=== PATIENT | female | born 1975 | race Caucasian/White ===

== ENCOUNTER 2016-06-05 07:40 | Inpatient (IN) | payer OTHER ==
[~2016-06-05] VITALS: Ht 174 cm; Wt 70.8 kg
[2016-06-05] VITALS (8 sets, daily range): BP systolic 116–146; BP diastolic 74–93; PULSE 81–117; RESP 12–20; O2SAT 88–100
--- NOTE | 2016-06-05 07:57 | ED.REPORT ---
HPI-Chest Pain 40 and Over Date of Service Jun 05, 2016 ED Provider: Yehuda Conley Patient is a 41 year old female who presets to the ED complaining on L sided chest pain. Associated symptoms include fever, vomiting (x1 yesterday), L shoulder pain, pain with deep breathing, and cough (onset 3 days ago). She denies abdominal pain, SOB, lightheadedness, or any other symptoms. She had neck surgery 12 days ago and was on a ventilator for 4 hours during the procedure. She was diagnosed with a UTI 2-3 days after her surgery and is due to take her last dose of antibiotics today. Nursing Notes Stated Complaint: CHEST PAIN Chief Complaint: Chest Pain-Non Cardiac Nature Nursing Notes Reviewed: Yes Allergies: Coded Allergies: Cephalexin Monohydrate (Verified Allergy, Intermediate, FACIAL SWELLING, ) vancomycin (Verified Allergy, Unknown, 11/10/14) General Time Seen by MD: 07:56 Chief Complaint Chest pain Hx Obtained From: Patient Arrived By: Walk-in Sudden in Onset?: Yes Onset Occurred: 3 days ago Symptom Duration: Since onset Recent Healthcare: Recent hospitalization, Previous surgery Past Medical History Past Medical History MVP Anxiety Chronic pain Tachycardia Chronic migraines Reports: Asthma Past Surgical History c5-6,6-7 surg. Jaw repair Reports: Tubal ligation Smoking History Former Smoker Social History Alcohol Use: Denies alcohol use Drug Use: Denies drug use Ambulatory Status Independent Review of Systems Constitutional: Reports: Fever Respiratory: Reports: Pleuritic pain, Prod cough, clear, Denies: Shortness of breath Cardiovascular: Reports: Chest pain GI: Reports: Vomiting, Denies: Abdominal pain Musculoskeletal: Reports: Joint pain (L shoulder ) Neurologic: Denies: Lightheaded Complete sys rev & neg: except as marked. Physical Exam Initial Vital Signs Vital Signs (First) Date Time Temp Pulse Resp B/P Pulse Ox O2 Delivery O2 Flow Rate FiO2 06/05/16 07:43 36.9 117 18 144/81 93 Room Air Head / Eyes: Atraumatic, Normocephalic Skin: Warm, Dry Neurologic: Alert, Oriented, Nonfocal Psychiatric: Mood/affect normal, Behavior normal, Normal thought content General/Constitutional: Awake, Alert, Well appearing, Well developed Respiratory / Chest: No respiratory distress Dull to percussion L base Decreased breath sounds L base Cardiovascular: Regular rhythm, Heart sounds NL Abdomen: Atraumatic, Soft, Non-tender Trauma - Neck Specific: Positive: Immobilized - C Collar Dressing on anterior L neck Interpretation & Diagnostics Lab Results Interpretation Result Diagram: 06/05/16 0947 06/05/16 0947 Test 06/05/16 09:47 White Blood Count 11.3th/mm3 (3.8-10.1) Red Blood Count 3.96mil/mm3 (3.90-5.20) Hemoglobin 10.6g/dL (12.0-15.6) Hematocrit 32.5% (35.0-46.0) Mean Corpuscular Volume 82.1fL (81-100) Mean Corpuscular Hemoglobin 26.8pg (27.0-35.0) Mean Corpuscular Hemoglobin Concent 32.6% (32.0-37.0) Red Cell Distribution Width 13.5% (12.3-15.4) Platelet Count 245bil/L (150-400) Neutrophils (%) (Auto) 79% (40-74) Lymphocytes (%) (Auto) 6% (14-46) Monocytes (%) (Auto) 4% (4-12) Eosinophils (%) (Auto) 0% (0-5) Basophils (%) (Auto) 0% (0-3) Band Neutrophils % 11% (1-5) Sodium Level 136mEq/L (134-144) Potassium Level 3.6mEq/L (3.5-5.2) Chloride Level 95mEq/L (97-108) Carbon Dioxide Level 28mmol/L (18-29) Blood Urea Nitrogen 15mg/dL (6-24) Creatinine 0.71mg/dL (0.57-1.00) Estimat Glomerular Filtration Rate 131mL/min (>59) Glucose Level 103mg/dL (60-99) Lactic Acid Level 2.9mmol/L (0.4-2.0) Calcium Level 8.8mg/dL (8.5-10.1) Total Bilirubin 0.5mg/dL (0.0-1.2) Aspartate Amino Transf (AST/SGOT) 62U/L (0-50) Alanine Aminotransferase (ALT/SGPT) 92U/L (0-32) Alkaline Phosphatase 101U/L (25-150) Total Protein 6.7g/dL (6.4-8.4) Albumin 3.0g/dL (3.4-5.0) X-Ray Chest Interpretation Chest Xray Interpretation: IMPRESSION: Findings consistent with bibasilar bronchopneumonia, with possible left parapneumonic effusion. Dictated by: Daniel Johnson M.D. on 06/05/2016 at 8:43 Approved by: Daniel Johnson M.D. on 06/05/2016 at 8:43 View: AP & lat Interpretation / Wet Read by: Interpret - Radiologist Re-Eval/Medical Decision Time of Eval: 08:50 Re-Evaluation/Progress Note: Discussed imaging results and plan for admission. Patient understands and agrees with plan. All questions addressed at this time. Consultation : Referral / Consult Name: Adalberto Hunter MD Consulted With: Hospitalist Call Returned at: 10:50 Towboat Captain: Will see patient, Agrees with eval, Agrees with plan, Accepts admit Note: Discussed patient's case. Accepts admit. Counseled Regarding: Diagnosis, Lab results, Need for admission Discharge & Departure Primary Impression: Healthcare-associated pneumonia Disposition: ADMITTED TO HOSPITAL Referrals: BONY BUTTS (PCP) Scribe Attestation Portions of this note were transcribed by Leticia Liu. IDr. Conley personally performed the history, physical exam and medical decision-making; I reviewed and confirmed the accuracy of the information in the transcribed note. Signed by: Leticia Liu 06/05/2016, 1055 copies to: BONY BUTTS Kirk H MD Jun 05, 2016 07:57 LETICIA LIU Jun 05, 2016 09:07
--- NOTE | 2016-06-05 08:45 | DRSVH ---
PROCEDURE: X-RAY CHEST, TWO VIEWS ([id number]) INDICATIONS: 41 year-old female with cough for 3 days. TECHNIQUE: 2 views of the chest were acquired. COMPARISON: [facility], , CHEST 2VW, 05/02/2014, 20:53. [facility], , C HEST 1VW (PORTABLE), 02/09/2014, 22:34. [facility], , CHEST 1VW (PORTABLE), 12/26/2012, 20:13. FINDINGS: Surgical changes and devices: None. Lungs and pleura: Bibasilar airspace opacities are present with air bronchograms, more extensive on t he left. There is possible left basal pleural effusion. No pneumothorax. Mediastinum: Mediastinal contours are normal. Heart size is normal. Bones and chest wall: No suspicious bony abnormalities. Soft tissues appear unremarkable. IMPRESSION: Findings consistent with bibasilar bronchopneumonia, with possible left parapneumonic eff usion. Dictated by: Daniel Johnson M.D. on 06/05/2016 at 8:43 Approved by: Daniel Johnson M.D. on 06/05/2016 at 8:43
[2016-06-05] MEDS ORDERED: levoFLOXacin Inj 750 MG in IV Premix 1 EACH IV ONE (08:55)
[2016-06-05] MEDS ORDERED: 0.9% Sodium Chloride 1,000 ML IV ONE (08:55)
[2016-06-05] MEDS ORDERED: Piperacillin-Tazo 3.375 Gm Inj 3.375 GM in Dextrose 5% Minibag Plus 50 ML IV ONE (08:55)
[2016-06-05 10:36] LABS: Mean Corpuscular Hemoglobin 26.8 pg (27.0-35.0); Mean Corpuscular Volume 82.1 fL (81-100); Platelet Count 245 bil/L (150-400)
[2016-06-05 10:37] LABS: BASOPHILS % (AUTO) 0 % (0-3); EOSINOPHILS % (AUTO) 0 % (0-5); MONOCYTES % (AUTO) 4 % (4-12); NEUTROPHILS % (AUTO) 79 % (40-74)
[2016-06-05] MEDS ORDERED: Alum-Mag Hydrox-Simeth 30 mL Suspension PO PRN ×2 (11:45→12:05)
[2016-06-05] MEDS ORDERED: Ondansetron 2 mg/mL 2 mL Inj IVPUSH PRN (11:45)
[2016-06-05] MEDS ORDERED: Albuterol 2.5 mg/3 mL Inhalation Solution NEB PRN (12:05)
[2016-06-05] MEDS ORDERED: Polyethylene Glycol (PEG) 17 Gm Powder PO PRN (12:05)
[2016-06-05] MEDS ORDERED: OXYC30TA48 PO (14:23)
[2016-06-05] MEDS ORDERED: CITA20TA11 PO (14:23)
[2016-06-05] MEDS ORDERED: CLON1TAB PO (14:23)
[2016-06-05] MEDS: Albuterol 2.5 mg/3 mL Inhalation Solution NEB SCH ×2 (14:51→19:43)
[2016-06-05] MEDS: D5 0.9% NaCl + KCl 20 mEq/L 1,000 ML IV SCH (15:16)
--- NOTE | 2016-06-05 15:22 | NUR ---
Admit Pt admitted at 1210 via stretcher from ER. auto body repair technician received report. Pt stable in bed. Placed on 2L O2 per NC after VS at 1235. Sats stable in high 90s after o2 placed. Family at bedside.
[2016-06-05] MEDS ORDERED: MetoCLOpramide 5 mg/mL 2 mL Inj IVPUSH ONE ×2 (15:25→23:45)
[2016-06-05] MEDS ORDERED: HYDROmorphone 1 mg/mL Inj IVPUSH ONE ×2 (15:25→23:45)
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
[2016-06-05] MEDS: Sodium Chloride LOK Flush 10 mL Syringe IVFLUSH SCH (16:30)
--- NOTE | 2016-06-05 16:33 | NUR ---
Vitals MD feldman paged and notified of elevated temp. Asked about IV fluids. IV fluids ordered. aware of vitals.
--- NOTE | 2016-06-05 16:34 | NUR ---
Migraine Pt refusing migraine cocktail at this time, would like to wait and see if fluids are effective.
[2016-06-05] MEDS: Lactobacillus Rhamnosus 10 Bil Unit Capsule PO SCH ×2 (17:56→21:12)
[2016-06-05 20:04] LABS: COLOR,URINE YELLOW (YELLOW)
[2016-06-05 20:05] LABS: APPEARANCE,URINE SLIGHTLY CLOUDY (CLEAR,HAZY); OCCULT BLOOD,URINE TRACE (NEGATIVE); PH,URINE 7.5 (5.0-8.0); UROBILINOGEN,URINE NORMAL (NORMAL)
[2016-06-05] MEDS ORDERED: HYDROmorphone 0.5 mg/0.5 mL iSecure Syringe ONE ×2 (23:38→23:40)
[2016-06-06] VITALS (7 sets, daily range): BP systolic 125–148; BP diastolic 77–91; PULSE 82–117; RESP 12–18; O2SAT 96–98
[2016-06-06] MEDS: Sodium Chloride LOK Flush 10 mL Syringe IVFLUSH SCH ×4 (00:30→22:00)
[2016-06-06] MEDS ORDERED: Pantoprazole 40 mg ER24 Tablet PO SCH (07:30)
[2016-06-06] MEDS: levoFLOXacin 750 mg Tablet PO SCH (08:14)
[2016-06-06] MEDS: Lactobacillus Rhamnosus 10 Bil Unit Capsule PO SCH ×4 (08:14→21:02)
[2016-06-06] MEDS: Albuterol 2.5 mg/3 mL Inhalation Solution NEB SCH ×3 (08:20→20:49)
--- NOTE | 2016-06-06 08:51 | NUR ---
Labs 0830 notified that no am labs ordered, lactic acid high yesterday and no repeat ordered. MD requests repeat CBC, CMP and lactic acid.
--- NOTE | 2016-06-06 09:27 | PCM.PNMED ---
Subjective Date of Service Jun 06, 2016 Subjective - Pt seen and examined bed side. c/o mild right sides chest pain. States that she is feeling better than yesterday. Exam Vital Signs Vital Sign - Last Date Time Temp Pulse Resp B/P Pulse Ox O2 Delivery O2 Flow Rate FiO2 06/06/16 08:15 36.9 117 16 133/83 96 Room Air 06/05/16 19:45 2.00 Intake and Output 06/05/16 06/05/16 06/06/16 Cumulative From/Thru 15:00 23:00 07:00 06/05/16 07:43 - 06/06/16 05:29 Intake Total 1000 ml 294 ml 1124 ml 2418 ml Balance 1000 ml 294 ml 1124 ml 2418 ml Intake IV Total 1000 ml 294 ml 1124 ml 2418 ml Exam Gen.: No weight loss weight gain, ++fevers chills malaise as described above Eyes: no visual disturbances or blurring vision HEENT: No nose/throat drainage, no pain in ears or throat, no hearing loss Lymph: No lymph nodes noted Cardiac: No chest pain, orthopnea, PND, palpitations , pedal edema or dyspnea on exertion Pulmonary: no cough, wheezing or bringing up of sputum, sided back and flank pain worse with breathing GI: No anorexia vomiting blood or black in the stool,+ nausea which she associates with her migraine : no dysuria hematuria urinary frequency or decrease in urine output Musculoskeletal: Joint swelling no joint pain no new muscle aches or back pain Neuro: No syncope, seizures no loss of consciousness no new focal weakness, numbness or tingling, patient has developed her headache/migraine and being here Psychiatric: New new anxiety insomnia or depression Endocrine: No new heat or cold intolerances polyuria or polydipsia Hematology: No lymphadenopathy or easy bleeding or bruising noted IVs and Medications Medications Reviewed: Medications were reviewed in detail Lab and Diagnostics Result Diagram: 06/05/1694606/05/16946 X-Rays, CTs and MRIs Bibasilar pneumonia possible left-sided parapneumonic effusion I personally reviewed these and agree with radiologist read 06/05 Assessment & Plan 41-year-old female with possible healthcare acquired pneumonia started on Levaquin in the emergency room and will continue it. She is also suffering from migraines, her Imitrex was insufficient alone we are going to go ahead and treat her with Reglan, ketorolac and a dose of Dilaudid hopefully that settles it. Finally pleurisy will start her on NSAIDs. Pneumonia - on Levoqin from 06/04 - switched to oral from today - Albuterol nebulizers Pleurisy - possible left-sided parapneumonic effusion - clinically improving migraine -on Imitrex - reglan prn Chronic continuous opiate dependence- continue patient's usual outpatient narcotic regimen Prophylaxis- DVT SCDs and enoxaparin. GI patient is already on famotidine I will not advance her to a PPI at this time. Disposition from home she is a full code VTE Mechanical Devices: Intermittant Pneumatic CD Resuscitation Status: CPR: Attempt Resuscitation Josh Handy MD Jun 06, 2016 09:27
[2016-06-06] MEDS: D5 0.9% NaCl + KCl 20 mEq/L 1,000 ML IV SCH ×3 (10:04→19:14)
[2016-06-06] MEDS: Butalbital-Acet-Caffeine Tablet PO PRN (10:59)
[2016-06-06 11:10] LABS: Mean Corpuscular Hemoglobin 26.7 pg (27.0-35.0); Mean Corpuscular Volume 83.1 fL (81-100)
--- NOTE | 2016-06-06 11:26 | NUR ---
Rounds 1030 notified of continued intermittent mild tachycardia 100-120. No new orders. MD notified of patient complaints of continued SALES/migraine. MD to order fioricet. notified of pt report of urinary retention post surgery (surgery prior to current admit). Pt states she does not void frequently and has not been self cathing at home. Per pt, outpt MD aware of issues. Voided 120 ml of dark urine this am. PVR bladder scan 527ml. Pt able to void again after PVR bladder scan 300ml. notified. To monitor. No new orders. UA culture pending. Per MD, no interventions with neck brace/current dressing in place prior to admit as pt needs to follow up with surgery as outpt.
--- NOTE | 2016-06-06 11:46 | NUR ---
Social Work: Screen D: Per EMR review, pt is a 41 year old female admitted for hospital acquired pneumonia. Pt is JUDITH DAMIAN. PCP is [facility] in [place]. NOK Is pt's mother Heidy Apple. Reamdit score is moderate, 3/8. Pt lives in [place] with family. She is I at baseline and remains I during admission. No sw barriers or needs identified by SCHEDULER CONVEYOR at this time. A: Pt who is I at baseline. P: Anticipate pt to discharge home via POV once medically stable; SCHEDULER CONVEYOR to continue to follow if needs arise. DANIELA Murphy
--- NOTE | 2016-06-06 14:47 | NUR ---
Perez Paged at 1315 that BC positive for pt. No response. Zechariah paged at 1400. Pt stable.
[2016-06-06] MEDS: HYDROcodone-APAP 5-325 mg Tablet PO PRN (22:01)
[2016-06-07] VITALS (9 sets, daily range): BP systolic 132–152; BP diastolic 76–95; PULSE 72–100; RESP 14–16; O2SAT 94–97
[2016-06-07] MEDS: D5 0.9% NaCl + KCl 20 mEq/L 1,000 ML IV SCH ×3 (03:36→22:36)
[2016-06-07 05:32] LABS: BASOPHILS % (AUTO) 0.3 % (0-3); EOSINOPHILS % (AUTO) 3.7 % (0-5); MONOCYTES % (AUTO) 8.8 % (4-12); Mean Corpuscular Volume 83.2 fL (81-100); NEUTROPHILS % (AUTO) 58.9 % (40-74); Platelet Count 202 bil/L (150-400)
[2016-06-07] MEDS ORDERED: Benzocaine-Menthol Lozenge 2/Pkg PO PRN ×2 (05:35→06:05)
--- NOTE | 2016-06-07 06:26 | NUR ---
URINATION Pt has had adequate urine output this shift with 1025ml. Pt reported needing the shower to be on to help and pt has to "bear down like I'm having a baby" to urinate, putting strain her neck. Pt mentioned possible usage of cole catheter because of the pain and discomfort needed to urinate. Will pass onto day shift to discuss in morning rounds.
[2016-06-07] MEDS: HYDROcodone-APAP 5-325 mg Tablet PO PRN (06:35)
[2016-06-07] MEDS: Albuterol 2.5 mg/3 mL Inhalation Solution NEB SCH ×3 (07:18→20:48)
[2016-06-07] MEDS: Sodium Chloride LOK Flush 10 mL Syringe IVFLUSH SCH ×2 (08:30→16:16)
[2016-06-07] MEDS: levoFLOXacin 750 mg Tablet PO SCH (08:50)
[2016-06-07] MEDS: Lactobacillus Rhamnosus 10 Bil Unit Capsule PO SCH ×4 (08:50→20:49)
--- NOTE | 2016-06-07 09:25 | PCM.PNMED ---
Subjective Date of Service Jun 07, 2016 Subjective - No acute events over night - c/o generalized body ache. Exam Vital Signs Vital Sign - Last Date Time Temp Pulse Resp B/P Pulse Ox O2 Delivery O2 Flow Rate FiO2 06/07/16 08:59 36.9 87 16 152/95 96 Room Air 06/05/16 19:45 2.00 Intake and Output 06/06/16 06/06/16 06/07/16 Cumulative From/Thru 15:00 23:00 07:00 06/05/16 07:43 - 06/07/16 06:17 Intake Total 2119 ml 1990 ml 6527 ml Output Total 1175 ml 1025 ml 2200 ml Balance 944 ml 965 ml 4327 ml Intake Oral 948 ml 706 ml 1654 ml IV Total 1171 ml 1284 ml 4873 ml Output Urine Total 1175 ml 1025 ml 2200 ml # Bowel Movements 0 0 Exam Gen.: No weight loss weight gain, ++fevers chills malaise as described above Eyes: no visual disturbances or blurring vision HEENT: Cervical collar in place. No nose/throat drainage, no pain in ears or throat, no hearing loss Lymph: No lymph nodes noted Cardiac: No chest pain, orthopnea, PND, palpitations , pedal edema or dyspnea on exertion Pulmonary: no cough, wheezing or bringing up of sputum, sided back and flank pain worse with breathing GI: No anorexia vomiting blood or black in the stool,+ nausea which she associates with her migraine : no dysuria hematuria urinary frequency or decrease in urine output Musculoskeletal: Joint swelling no joint pain no new muscle aches or back pain Neuro: No syncope, seizures no loss of consciousness no new focal weakness, numbness or tingling, patient has developed her headache/migraine and being here Psychiatric: Anxiety Endocrine: No new heat or cold intolerances polyuria or polydipsia Hematology: No lymphadenopathy or easy bleeding or bruising noted IVs and Medications Medications Reviewed: Medications were reviewed in detail Lab and Diagnostics Result Diagram: 06/07/16 0505 06/07/16 0505 X-Rays, CTs and MRIs Bibasilar pneumonia possible left-sided parapneumonic effusion I personally reviewed these and agree with radiologist read 06/05 Assessment & Plan 41-year-old female with possible healthcare acquired pneumonia started on Levaquin in the emergency room and will continue it. She is also suffering from migraines, her Imitrex was insufficient alone we are going to go ahead and treat her with Reglan, ketorolac and a dose of Dilaudid hopefully that settles it. Finally pleurisy will start her on NSAIDs. Positive blood culture - Likely contaminated - No signs of sepsis - Will repeat it - No fever, chills. Hct trending down. Likely hemodilution - Hct today: 25.3 - Denies bleeding - Will continue to monitor. If Hb is less than 8 will consider PRBC Pneumonia - on Levoqin from 06/04 - Albuterol nebulizers Pleurisy - possible left-sided parapneumonic effusion - clinically improving migraine - Pain is significantly less than yesterday -on Imitrex and Fioricet - reglan prn Cervical fusion surgery - on oxycodone - Cervical collar in place - Dressing removal tomorrow as per her. Chronic continuous opiate dependence- continue patient's usual outpatient narcotic regimen Prophylaxis- DVT SCDs and enoxaparin. GI patient is already on famotidine I will not advance her to a PPI at this time. Disposition Home. She is full code. VTE Mechanical Devices: Intermittant Pneumatic CD Resuscitation Status: CPR: Attempt Resuscitation Josh Handy MD Jun 07, 2016 09:25
[2016-06-07] MEDS: Butalbital-Acet-Caffeine Tablet PO PRN (20:51)
[2016-06-08] MEDS: Sodium Chloride LOK Flush 10 mL Syringe IVFLUSH SCH ×2 (00:21→07:50)
[2016-06-08 01:00] VITALS: BP 142/82; PULSE 94; RESP 16; O2SAT 95
--- NOTE | 2016-06-08 06:12 | NUR ---
Activity Pt ambulated in the kay at the beginning of shift. Pt c/o pain her neck and a headache. Pt was given pain medications as ordered. Pt has slept for quite a bit of the night. C/o a deep pain in her right calf. area was not swollen or warn to the touch. Pt states she does have varicose veins and sometimes they hurt. Will continue to monitor
[2016-06-08 07:12] LABS: Mean Corpuscular Hemoglobin 26.6 pg (27.0-35.0); Mean Corpuscular Volume 81.1 fL (81-100); Platelet Count 259 bil/L (150-400)
[2016-06-08] MEDS: levoFLOXacin 750 mg Tablet PO SCH (07:49)
[2016-06-08] MEDS: Lactobacillus Rhamnosus 10 Bil Unit Capsule PO SCH (07:50)
[2016-06-08 08:15] LABS: BASOPHILS % (AUTO) 0 % (0-3); EOSINOPHILS % (AUTO) 3 % (0-5); MONOCYTES % (AUTO) 10 % (4-12); NEUTROPHILS % (AUTO) 72 % (40-74)
[2016-06-08 08:46] VITALS: BP 120/77; PULSE 111; RESP 16; O2SAT 94
[2016-06-08] MEDS: D5 0.9% NaCl + KCl 20 mEq/L 1,000 ML IV SCH (08:59)
[2016-06-08 09:28] VITALS: PULSE 93; RESP 16; O2SAT 92
[2016-06-08] MEDS: Albuterol 2.5 mg/3 mL Inhalation Solution NEB SCH (09:28)
[2016-06-08] MEDS ORDERED: AMIT75TA2 PO (10:26)
[2016-06-08] MEDS ORDERED: BACL20TA PO (10:26)
[2016-06-08] MEDS ORDERED: ATEN25TA PO (10:26)
--- NOTE | 2016-06-08 10:27 | NUR ---
Meds 1020 Pt now reporting that she takes more home meds, including baclofen, amitryptilline and atenolol. Doses and frequencies verified with both pt and [facility] pharmacy on [address] in [place]. Again verified verbalized oxycodone dose, pt states [facility]. to come up to rounds and discuss. Med rec updated. Addendum: 06/08/16 at 1044 by CLEO PHILLIPS RN 1030 MD notified of reported atenolol. Also notified that pt is c/o mild R calf tenderness. Calf not red or edematous. Addendum: 06/08/16 at 1136 by CLEO PHILLIPS RN MD assessed pt at bedside. No new orders, pt to dc today. aware of HR 120s at bedside. Per , RN to remove neck stitches prior to pt dc today.
[2016-06-08] MEDS ORDERED: LEVO750T9 PO (10:56)
[2016-06-08] MEDS ORDERED: ALBU8.5H2 INHALATION (10:56)
--- NOTE | 2016-06-08 10:58 | PCM.DIMED ---
Discharge Instructions Date of Service Jun 08, 2016 Dates of Hospitalization Jun 05, 2016 at 10:52 Discharge Diagnosis Discharge Diagnosis bacterial pneumonia Diet No restrictions Activity Limited until seen by PCP Call your provider Fever or Chills, Shortness of breath, Chest pain, Excessive diarrhea, Weakness ( unilateral) Patient Instructions Follow-up plan follow up with surgery in 1-2 weeks. Follow-up with PCP in: 1 week Juwan Osuna DO Jun 08, 2016 10:58
--- NOTE | 2016-06-08 12:08 | NUR ---
Wound care 1150 per md request, removed pt's neck brace and left neck dressing, removed 3 sutures w/o complication. No drainage. No redness. Pt to follow up in 1 to 2 weeks with surgery. Neck brace placed back on pt w/o new dressing per pt instruction.
--- NOTE | 2016-06-08 12:24 | NUR ---
Discharge Pt dc'd at 1224 ambulatory with UA and mom. All belongings with pt. Reviewed all discharge instructions and meds and pt verbalized understanding. IV dc'd w/o complication.
--- NOTE | 2016-06-08 12:34 | NUR ---
Social Work-discharge: Data:EMR reviewed. Pt is on day 3 of hospitalization for pneumonia per H&P. Pt is medically stable to discharge home today. Pt has been up independent in her room, per RN notes. Pt's mother to provide transport home today. No discharge needs identified. All updated and agreeable to plan. Assessment:pt who is independent at baseline. Plan:Pt to discharge home today via POV. No discharge needs identified. All updated and agreeable to plan. DANIELA Snyder
--- NOTE | 2016-06-08 20:51 | PCM.DC.MED ---
Discharge Summary Date of Service Jun 08, 2016 Dates of Hospitalization Date of Hospital Admission Jun 05, 2016 at 10:52 Date of Discharge: Jun 08, 2016 Providers: Admitting Physician: Adalberto Hunter MD Primary Care Physician: Janel Akers Attending Physician: Adalberto Hunter MD Diagnosis at Time of Discharge Diagnosis at Time of Discharge bacterial pneumonia Procedures XRay, CTs & MRIs Bibasilar pneumonia possible left-sided parapneumonic effusion I personally reviewed these and agree with radiologist read 06/05 Brief History Patient's a 41-year-old female who had C-spine fusion in [facility] approximately 05/21 who has been at home went to her appointment on and began to feel some left-sided flank pain. It has gotten progressively worse to the point where she was in terrible pain and could not sleep last night. She showed up in the emergency room she was febrile having fevers and chills. Since then she has also developed a migraine. And is generally miserable. She states she has been eating fine prior to this no fevers or chills, no dyspnea no cough or bringing up of sputum. But now when she breathes in deep it hurts badly and when she coughs or does anything particularly left great much greater than right. Hospital Course 41-year-old female with possible healthcare acquired pneumonia started on Levaquin in the emergency room and will continue it. She is also suffering from migraines, her Imitrex was insufficient alone we are going to go ahead and treat her with Reglan, ketorolac and a dose of Dilaudid hopefully that settles it. Finally pleurisy will start her on NSAIDs. She was discharged home in stable condition and will need follow-up with her primary care physician within one week, sooner if her condition worsens in anyway. Positive blood culture - Likely contaminated. Blood culture was positive for staph epidermidis 1 out of 4 bottles - No signs of sepsis -Repeat blood cultures negative at discharge. - No fever, chills. Hct trending down. Likely hemodilution - Hct today: 25.3 - Denies bleeding -Remained stable Pneumonia - on Levoqin from 06/04. 5 days given at discharge - Albuterol nebulizers -Sputum culture positive for strep pneumonia. Sensitivities pending at discharge -She was on room air at the time of discharge Pleurisy - possible left-sided parapneumonic effusion - clinically improving. Little to no pain at discharge migraine - Pain is significantly less than yesterday -on Imitrex and Fioricet - reglan prn Cervical fusion surgery - on oxycodone - Cervical collar in place - Sutures removed prior to discharge Chronic continuous opiate dependence- continue patient's usual outpatient narcotic regimen Exam Vital Signs (Last) Date Time Temp Pulse Resp B/P Pulse Ox O2 Delivery O2 Flow Rate FiO2 06/08/16 09:28 93 16 92 Room Air 06/08/16 08:46 36.1 120/77 06/05/16 19:45 2.00 Test 06/05/16 09:50 06/06/16 10:36 06/08/16 06:50 Urine Color Yellow (YELLOW) Urine Appearance Slightly cloudy Urine pH 7.5 (5.0-8.0) Urine Specific Industry 1.015 (1.003-1.035) Urine Protein 100mg/dL (NEG,TRACE) Urine Glucose (UA) Negativemg/dL (NEGATIVE) Urine Ketones Negativemg/dL (NEGATIVE) Urine Occult Blood Trace (NEGATIVE) Urine Nitrite Negative (NEGATIVE) Urine Bilirubin Negative (NEGATIVE) Urine Urobilinogen Normalmg/dL (NORMAL) Urine Leukocyte Esterase Small (NEGATIVE) Urine RBC 0-2/hpf (0-2) Urine WBC 11-50/hpf (0-5) Urine Epithelial Cells Moderate/hpf (NONE-MOD) Urine Crystals None seen (NONE SEEN) Urine Bacteria Few/hpf (NONE-FEW) Urine Hyaline Casts None/lpf (NONE) Urine Granular Casts None seen (NONE SEEN) Urine Waxy Casts None seen (NONE SEEN) Urine Red Blood Cell Casts None seen (NONE SEEN) Urine White Blood Cell Casts None seen (NONE SEEN) Urine Mucus None seen (None Seen) Urine Trichomonas None seen (NONE SEEN) Urine Yeast None (NONE SEEN) Urinalysis Comment None Urine Culture Reflexed Indicated Lactic Acid Level 1.2mmol/L (0.4-2.0) Total Bilirubin 0.2mg/dL (0.0-1.2) Aspartate Amino Transf (AST/SGOT) 23U/L (0-50) Alanine Aminotransferase (ALT/SGPT) 48U/L (0-32) Alkaline Phosphatase 85U/L (25-150) Total Protein 6.1g/dL (6.4-8.4) Albumin 2.4g/dL (3.4-5.0) White Blood Count 6.4th/mm3 (3.8-10.1) Red Blood Count 3.54mil/mm3 (3.90-5.20) Hemoglobin 9.4g/dL (12.0-15.6) Hematocrit 28.7% (35.0-46.0) Mean Corpuscular Volume 81.1fL (81-100) Mean Corpuscular Hemoglobin 26.6pg (27.0-35.0) Mean Corpuscular Hemoglobin Concent 32.8% (32.0-37.0) Red Cell Distribution Width 13.5% (12.3-15.4) Platelet Count 259bil/L (150-400) Neutrophils (%) (Auto) 72% (40-74) Lymphocytes (%) (Auto) 12% (14-46) Monocytes (%) (Auto) 10% (4-12) Eosinophils (%) (Auto) 3% (0-5) Basophils (%) (Auto) 0% (0-3) Band Neutrophils % 1% (1-5) Metamyelocytes % 2% (0-0) Sodium Level 141mEq/L (134-144) Potassium Level 3.6mEq/L (3.5-5.2) Chloride Level 103mEq/L (97-108) Carbon Dioxide Level 27mmol/L (18-29) Blood Urea Nitrogen 2mg/dL (6-24) Creatinine 0.51mg/dL (0.57-1.00) Estimat Glomerular Filtration Rate 191mL/min (>59) Glucose Level 128mg/dL (60-99) Calcium Level 8.5mg/dL (8.5-10.1) Discharge Medications Discharge Medications Albuterol HFA (Proair HFA) 8.5 Gm Hfa.aer.ad 2 PUFFS INHALATION Q4H Prescribed by: LEILANI OSUNA DO Amitriptyline (Amitriptyline) 75 Mg Tablet 75 MG PO HS (Reported) Atenolol (Atenolol) 25 Mg Tablet 25 MG PO DAILY (Reported) Citalopram (Citalopram) 20 Mg Tablet 40 MG PO DAILY (Reported) Clonazepam (Klonopin) 1 Mg Tablet 1 MG PO TID (Reported) Levofloxacin (Levaquin) 750 Mg Tablet 750 MG PO DAILYAC Prescribed by: LEILANI OSUNA DO Oxycodone (Roxicodone) 30 Mg Tablet 30 MG PO every 4 hours (Reported) As needed Baclofen (Baclofen) 20 Mg Tablet 20 MG PO 3 to 4 times daily PRN PRN For Spasm ( Reported) Followup Plan Follow-up plan follow up with surgery in 1-2 weeks. Discharge Diet: No restrictions Discharge Activity: Limited until seen by PCP Follow-up with PCP in: 1 week Time spent 45 minutes Leilani Osuna DO Jun 08, 2016 20:51
== END 2016-06-08 12:21 | disposition home or self-care (01) | DRG 139 ==
LOC: SED 07:40 → MOC 10:52
PROVIDERS: ADMIT Hospitalist; ATTEND Hospitalist
DX: J15.9 Unspecified bacterial pneumonia (principal); F11.20 Opioid dependence, uncomplicated; G89.29 Other chronic pain; Z87.891 Personal history of nicotine dependence; G43.909 Migraine, unspecified, not intractable, without status migrainosus; R09.1 Pleurisy; D64.9 Anemia, unspecified

== ENCOUNTER 2016-08-31 09:30 | Emergency (ER) | payer OTHER ==
[~2016-08-31] VITALS: Ht 175.3 cm; Wt 65.9 kg
[~2016-08-31 09:30] MED LIST: ALBU8.5H2 INHALATION; AMIT75TA2 PO; ATEN25TA PO; BACL20TA PO; CITA20TA11 PO; CLON1TAB PO; LEVO750T9 PO; OXYC30TA48 PO
[2016-08-31 09:33] VITALS: BP 109/65; PULSE 76; RESP 14; O2SAT 98
--- NOTE | 2016-08-31 09:58 | ED.REPORT ---
HPI-General Illness Date of Service Aug 31, 2016 ED Provider: Elia Arciniega MD Pt is a 41 year old female with a hx of neck surgery May 24, 2016 presenting to the ED complaining of severe neck pain onset a month and a half ago, worsened recently. Associated symptoms include increasing pain and numbness radiating to her right arm, numbness in both legs, fever last week and nausea secondary to pain. Denies incontinence or IV drug use. She has a follow up appointment on September [address] Garza. She reports that the pain is unbearable, and she is unable to live her day to day life. Pt reports that 2 months post operation, she heard a pop and symptoms returned more severe than before the surgery. Pt takes 3 4mg Dilaudid and 3 10mg Oxycodone per day for pain. Before surgery pt was taking 30mg Oxycodone. On the 02 of September pt had a cervical spine CT no contrast at [facility] showing stable and intact ACDF C5-C7. Partial osseus bridging and fusion of C6- C7 level. Persistent lucency along the superior aspect of the intervertebral graft at C5-C6. No perihardware lucency. Nursing Notes Stated Complaint: RIGHT SIDE NUMBNESS/NECK PAIN Chief Complaint: General Complaint Nursing Notes Reviewed: Yes Allergies: Coded Allergies: Cephalexin Monohydrate (Verified Allergy, Intermediate, FACIAL SWELLING, ) vancomycin (Verified Allergy, Unknown, 11/10/14) Scheduled Albuterol HFA (Proair HFA) 8.5 Gm Hfa.aer.ad 2 PUFFS INHALATION Q4H Amitriptyline (Amitriptyline) 75 Mg Tablet 75 MG PO HS Atenolol (Atenolol) 25 Mg Tablet 25 MG PO DAILY Citalopram (Citalopram) 20 Mg Tablet 40 MG PO DAILY Clonazepam (Klonopin) 1 Mg Tablet 1 MG PO TID Levofloxacin (Levaquin) 750 Mg Tablet 750 MG PO DAILYAC Methylprednisolone (MethylprednisoLONE Dose Allan) 4 Mg Tab.ds.pk 4 MG PO UD Follow direction on package. Oxycodone (Roxicodone) 30 Mg Tablet 30 MG PO every 4 hours Scheduled PRN Baclofen (Baclofen) 20 Mg Tablet 20 MG PO 3 to 4 times daily PRN PRN For Spasm General Time Seen by MD: 09:53 Chief Complaint Other (Neck pain) Hx Obtained From: Patient Arrived By: Walk-in Sudden in Onset?: No Onset Occurred: More than a week ago... (2 months) Symptom Duration: Since onset Location: : Hand right: Neck Quality: Painful Severity: Current: Severe Severity: Maximum: Severe Recent Healthcare: No recent doctor visit, No recent hospitalization, Previous surgery Similar Sx Previous: Yes Past Medical History Past Medical History MVP Anxiety Chronic pain Tachycardia Chronic migraines Reports: Asthma Past Surgical History c5-6,6-7 surgery May [address] no contrast on 02 of September at [facility] showing stable and intact ACDF C5-C7. Partial osseus bridging and fusion of C6-C7 level. Persistent lucency along the superior aspect of the intervertebral graft at C5-C6. No perihardware lucency. Jaw repair Reports: Tubal ligation Smoking History Former Smoker Social History Alcohol Use: Denies alcohol use Drug Use: Denies drug use Ambulatory Status Independent Review of Systems Full Review of Systems Constitutional: Reports: Fever Female: Denies: Incontinence Musculoskeletal: Reports: Neck pain Neurologic: Reports: Numbness Complete sys rev & neg: except as marked. Physical Exam Vital Signs Vital Signs Date Time Temp Pulse Resp B/P Pulse Ox O2 Delivery O2 Flow Rate FiO2 08/31/16 10:42 37.0 74 16 112/68 98 Room Air 08/31/16 09:33 37.0 76 14 109/65 98 Room Air Initial VS: Reviewed Head / Eyes: Atraumatic, Normocephalic, PERRL ENT: Mucous membranes moist, Conjunctiva normal, No scleral icterus Respiratory: No respiratory distress Cardiovascular: Intact distal pulses Abdomen / GI: No distention Extremities: Vascular intact, Neuro intact, No swelling Skin: Warm, Dry, No cyanosis Neurologic: Alert, Oriented, Nonfocal Psychiatric: Mood/affect normal, Behavior normal, Normal thought content General/Constitutional: Awake, Alert, No acute distress Wearing [place] J collar Upper Extremities Upper Extremity / MS: Neurologic intact, Vascular intact Model Builder and arm extensor 4/5 on right. Deep tendon reflexes normal and symmetric. Re-Eval/Medical Decision Med Decision/Clinical Course Neck pain and R arm pain/weakness. Pt concerned about psuedoarthrosis associated with fusion. Already on fairly high dose opiods- will not increase this. 14 ED visits between here, [facility] and [facility] in last 12 months. Refused offer of Rx for Gabapentin "makes me too sleepy", though she insists that current pain level is intolerable. Time of Eval: 10:25 Patient Status: Condition improved Re-Evaluation/Progress Note: Discussed consultation with Dr. Colin. Discussed plan for discharge. Pt understands and agrees with plan. Consultation : Referral / Consult Name: Katie Colin MD Consulted With: Primary care physician Call Returned at: 10:15 Library Historian: Agrees with plan Note: Primary care notes pt opiod dependent and with significant anxiety. Pain management has been problematic. Counseled Regarding: Diagnosis, Lab results, Need for follow-up, When/why to return to ED Discharge & Departure Primary Impression: Neck pain Disposition: Home Discharge Condition All VS Reviewed: Yes Condition: Improved Additional Instructions: ED evaluation today included interview, exam, review of outside imaging report and coordination with your numerical control nesting operator. The neck pain you are experiencing is not the result of an acute injury or infection, it is safe to follow up as an outpatient with chronic pain and neurosurgery as planned. Use opiate pain medications only as prescribed. Follow up with primary care soon, call today for an appointment. Start the medrol dose pack tomorrow, we gave a dose of steroids today also, hopefully this will help decrease your pain soon. Referrals: [facility] (PCP) Anthony Garza MD, Shannon MD Scribe Attestation Portions of this note were transcribed by Jackie Griffin. I, Dr. Arciniega personally performed the history, physical exam and medical decision-making; I reviewed and confirmed the accuracy of the information in the transcribed note. Signed by : Srini Aldana, 08/31/2016 at 1042. copies to: Anthony Garza MD; Katie Colin MD, Donald L MD Aug 31, 2016 09:58 JACKIE GRIFFIN Aug 31, 2016 10:19
[2016-08-31] MEDS ORDERED: predniSONE 20 mg Tablet PO ONE (10:30)
[2016-08-31] MEDS ORDERED: METH4TAB11 PO (10:34)
[2016-08-31 10:42] VITALS: BP 112/68; PULSE 74; RESP 16; O2SAT 98
== END 2016-08-31 10:43 | disposition home or self-care (01) ==
LOC: SED 09:30
DX: M54.2 Cervicalgia (principal); R20.0 Anesthesia of skin; R50.9 Fever, unspecified; R11.0 Nausea; J45.909 Unspecified asthma, uncomplicated; Z98.890 Other specified postprocedural states; Z87.891 Personal history of nicotine dependence; Z88.1 Allergy status to other antibiotic agents

== ENCOUNTER 2016-09-14 11:56 | Emergency (ER) | payer OTHER ==
[~2016-09-14] VITALS: Ht 175.3 cm; Wt 65.9 kg
[~2016-09-14 11:56] MED LIST changes: +METH4TAB11 PO
[2016-09-14 12:12] VITALS: BP 132/82; PULSE 66; RESP 14; O2SAT 100
--- NOTE | 2016-09-14 13:54 | ED.REPORT ---
HPI-Headache Date of Service Sep 14, 2016 ED Provider: Hua Matthews DO 41 year old female with a history of migraines and c4-c7 fusion May 2016 presents to the ER accompanied by her mother complaining of headache. Symptoms are similar to her typical migraines, but far more severe. Patient denies positional component, and any new neurologic symptoms. She has treated her symptoms with her daily dose of Imitrex, 20mg oxycodone, and 2mg Dilaudid this morning without relief. Associated symptoms include left neck stiffness, nausea , and chills. Yesterday she had a myelogram at [facility], and is concerned for infection. Nursing Notes Stated Complaint: SPINAL HEADACHE NECK PAIN Chief Complaint: Headache Nursing Notes Reviewed: Yes Allergies: Coded Allergies: Cephalexin Monohydrate (Verified Allergy, Intermediate, FACIAL SWELLING, ) vancomycin (Verified Allergy, Unknown, 11/10/14) Scheduled Albuterol HFA (Proair HFA) 8.5 Gm Hfa.aer.ad 2 PUFFS INHALATION Q4H Amitriptyline (Amitriptyline) 75 Mg Tablet 75 MG PO HS Atenolol (Atenolol) 25 Mg Tablet 25 MG PO DAILY Citalopram (Citalopram) 20 Mg Tablet 40 MG PO DAILY Clonazepam (Klonopin) 1 Mg Tablet 1 MG PO TID Levofloxacin (Levaquin) 750 Mg Tablet 750 MG PO DAILYAC Methylprednisolone (MethylprednisoLONE Dose Allan) 4 Mg Tab.ds.pk 4 MG PO UD Follow direction on package. Oxycodone (Roxicodone) 30 Mg Tablet 30 MG PO every 4 hours Sumatriptan Succinate (Imitrex) 6 Mg/0.5 Ml Cartridge 6 MG SQ ONCE may repeat in one hour, no more than 12 mg in 24hrs Scheduled PRN Baclofen (Baclofen) 20 Mg Tablet 20 MG PO 3 to 4 times daily PRN PRN For Spasm General Time Seen by MD: 13:53 Chief Complaint Migraine headache Hx Obtained From: Patient Arrived By: Walk-in Sudden in Onset?: No Onset Occurred: 5 - 8 hours ago Symptom Duration: Since onset Location: : Generalized Quality: Painful Severity: Current: Moderate Severity: Maximum: Moderate Associated with: Reports: Nausea Related History: Reports: Headache, migraine hx Recent Healthcare: Recent doctor visit Similar Sx Previous: Yes Past Medical History Past Medical History MVP Anxiety Chronic pain Tachycardia Chronic migraines Reports: Asthma Past Surgical History c5-6,6-7 surgery May [address] no contrast on [address] [facility] showing stable and intact ACDF C5-C7. Partial osseus bridging and fusion of C6-C7 level. Persistent lucency along the superior aspect of the intervertebral graft at C5-C6. No perihardware lucency. Jaw repair Reports: Tubal ligation Smoking History Former Smoker Social History Alcohol Use: Denies alcohol use Drug Use: Denies drug use Ambulatory Status Independent Review of Systems Constitutional: Reports: Chills, Denies: Fever Eyes: Reports: Photophobia GI: Reports: Nausea, Denies: Vomiting Musculoskeletal: Reports: Neck pain Neurologic: Reports: Headache, Denies: Focal weakness, Numbness, Slurred speech, Vision change, Weakness Complete sys rev & neg: except as marked. Physical Exam Initial Vital Signs Vital Signs (First) Date Time Temp Pulse Resp B/P Pulse Ox O2 Delivery O2 Flow Rate FiO2 09/14/16 12:12 36.5 66 14 132/82 100 Room Air Initial VS: Reviewed Extremities: Vascular intact, Neuro intact, No swelling, No tenderness Skin: Warm, Dry, No cyanosis Psychiatric: Mood/affect normal, Behavior normal, Normal thought content General/Constitutional: Awake, Alert, Well developed, Well nourished Head / Eyes: Atraumatic, Normocephalic Neck: Full range of motion, No midline vertebral tend Neurologic: Oriented X3, Speech NL, No motor deficits, No sensory deficits, CN II - XII intact, Cerebellar NL Respiratory / Chest: Breath sounds NL, Breath sounds = bilat, No respiratory distress, No rales, No rhonchi, No wheezing Cardiovascular: Heart rate NL, Regular rhythm, Heart sounds NL, Peripheral circulation NL Re-Eval/Medical Decision Med Decision/Clinical Course Post myelogram headache, overall it does not sound positional in nature, it may be a post dural puncture CSF leak, although Symptoms sound similar to her other migraines. She was given her usual dose of oxycodone and offered Compazine and Benadryl which she declined. She would prefer a dose of subcutaneous Imitrex. I did offer to contact anesthesia for a blood patch however she declines this at this time in order to pursue less invasive management. I did recommend that she return to the ER if her headache worsens or is continuing to persist and could consider blood patch at that time. Source of Hx: Old records Re-Evaluation/Progress : Time of Eval: 14:36 Re-Evaluation/Progress Note: Discussed physical examination findings and plan to discharge after medications. Patient is amenable to the plan. Return precautions given. All other questions addressed. Counseled Regarding: Diagnosis, Lab results, Need for follow-up, When/why to return to ED Discharge & Departure Impression: Primary Impression: Migraine Disposition: Home Discharge Condition All VS Reviewed: Yes Condition: Stable Patient Instructions: Migraine Headache (DC) Additional Instructions: Continue your home medications as prescribed. Use imitrex as needed. Follow-up with your primary care physician later this week. Call your spine surgeon today for further evaluation. Today we discussed having a blood patch and other medication however he declined any of this in order to have Imitrex and go home. Return to the ER in the next few days if you feel like her headache is not going away as you may need a blood patch. Return to the ER if you develop any new neurologic symptoms, or any other concerning symptoms. Referrals: BONY BUTTS (PCP) Stefaniibshira Attestation Portions of this note were transcribed by Jareth Flores. I, Dr. Matthews, personally performed the history, physical exam and medical decision-making; I reviewed and confirmed the accuracy of the information in the transcribed note. Signed by: Srini Wong, 09/14/2016 and 14:48 copies to: BONY BUTTS Timothy S DO Sep 14, 2016 13:54 JARETH FLORES Sep 14, 2016 14:04
[2016-09-14] MEDS ORDERED: ProchlorPERazine 5 mg/mL 2 mL Inj IM ONE (14:05)
[2016-09-14] MEDS ORDERED: oxyCODONE-Acetamin 10-325 mg Tablet PO ONE (14:05)
[2016-09-14] MEDS ORDERED: SUMA6KIT SQ (14:46)
[2016-09-14 15:00] VITALS: BP 130/60; PULSE 66; RESP 16; O2SAT 100
== END 2016-09-14 14:47 | disposition home or self-care (01) ==
LOC: SED 11:56
DX: G43.909 Migraine, unspecified, not intractable, without status migrainosus (principal); Z87.891 Personal history of nicotine dependence; Z88.1 Allergy status to other antibiotic agents

== ENCOUNTER 2016-11-08 14:11 | Emergency (ER) | payer OTHER ==
[~2016-11-08] VITALS: Ht 175.3 cm; Wt 65.0 kg
[~2016-11-08 14:11] MED LIST changes: +SUMA6KIT SQ
[2016-11-08 14:13] VITALS: BP 136/76; PULSE 82; RESP 20; O2SAT 100
--- NOTE | 2016-11-08 14:20 | ED.REPORT ---
HPI-Neck Pain Free Text HPI Notes Nov 08, 2016 ED Provider: Yaakov Juan PAC History of Present Illness: 41yo female with long hx. of neck pain issues states she fell backwards down 5 steps at home last night and hit her posterior neck on corner of a stair step. No LOC. She does have numbness and tingling in R arm. Additionally, she reports a hx. of failed cervical spine fusion x 2, most recently in May, at [facility].. She takes 30mg of oxycodone 5 times daily. Nursing Notes Stated Complaint: FELL ON INJURED NECK, NUMBNESS AND TINGLING Chief Complaint: Head, Face, Neck Trauma Nursing Notes Reviewed: Yes Allergies: Coded Allergies: Cephalexin Monohydrate (Verified Allergy, Intermediate, FACIAL SWELLING, ) vancomycin (Verified Allergy, Unknown, 11/10/14) Scheduled Albuterol HFA (Proair HFA) 8.5 Gm Hfa.aer.ad 2 PUFFS INHALATION Q4H Amitriptyline (Amitriptyline) 75 Mg Tablet 75 MG PO HS Atenolol (Atenolol) 25 Mg Tablet 25 MG PO DAILY Citalopram (Citalopram) 20 Mg Tablet 40 MG PO DAILY Clonazepam (Klonopin) 1 Mg Tablet 1 MG PO TID Levofloxacin (Levaquin) 750 Mg Tablet 750 MG PO DAILYAC Lidocaine (Lidoderm) 700 Mg Adh..patch 1 PATCH TP UD Methylprednisolone (MethylprednisoLONE Dose Allan) 4 Mg Tab.ds.pk 4 MG PO UD Follow direction on package. Oxycodone (Roxicodone) 30 Mg Tablet 30 MG PO every 4 hours Prednisone (PredniSONE) 20 Mg Tablet 40 MG PO DAILY Sumatriptan Succinate (Imitrex) 6 Mg/0.5 Ml Cartridge 6 MG SQ ONCE may repeat in one hour, no more than 12 mg in 24hrs Scheduled PRN Baclofen (Baclofen) 20 Mg Tablet 20 MG PO 3 to 4 times daily PRN PRN For Spasm Ondansetron ODT (Zofran ODT) 8 Mg Tablet 8 MG PO TID PRN PRN For Nausea General Time Seen by Provider: 14:20 Chief Complaint Neck injury Arrived By: Walk-in Sudden in Onset?: Yes Onset Occurred: Yesterday Progression Since Onset: Constant Caused by: Fall Context: Occurred at: Home Associated with: Reports: Decreased range of motion, Decreased sensation, Stiff neck Pertinent Negative: Pt denies other symptoms Exacerbated by: Flexion, Extension, Palpation Pertinent Negative: Relieved by nothing Recent Healthcare: Recent doctor visit Similar Sx Previous: Yes Risk-Neck Pain Risk Notes: previous surgery indicates CT to evaluate this new injury. High Risk for Injury Prior spine injury RF Statements: Risk factors reviewed Past Medical History Past Medical History MVP Anxiety Chronic pain Tachycardia Chronic migraines Reports: Asthma Past Surgical History c5-6,6-7 surgery May [address] no contrast on 02 of September at [facility] showing stable and intact ACDF C5-C7. Partial osseus bridging and fusion of C6-C7 level. Persistent lucency along the superior aspect of the intervertebral graft at C5-C6. No perihardware lucency. Jaw repair Reports: Tubal ligation Smoking History Former Smoker Social History Alcohol Use: Denies alcohol use Drug Use: Denies drug use Ambulatory Status Independent Review of Systems Constitutional: Denies: Chills, Fever Respiratory: Denies: Shortness of breath Cardiovascular: Denies: Chest pain GI: Reports: Nausea, Denies: Abdominal pain Musculoskeletal: Reports: Neck pain Neurologic: Reports: Numbness (R arm), Denies: Change LOC, Focal weakness, Weakness Physical Exam Physical Exam Notes: wearing c-collar Initial Vital Signs Vital Signs (First) Date Time Temp Pulse Resp B/P Pulse Ox O2 Delivery O2 Flow Rate FiO2 11/08/16 14:13 36.1 82 20 136/76 100 Room Air Initial VS: Reviewed General/Constitutional: Awake, Alert, No acute distress, Not toxic appearing Neck: Atraumatic, No adenopathy, No swelling, No masses, No crepitus Meningeal Signs / ROM: Positive: Decreased extension, Decreased flexion, Negative: Nuchal rigidity present Neck / Muscle Tenderness: Positive: Midline tenderness mid, Paraspinal L..., Paraspinal R... Soft Tissue Neck: Negative: Skin erythematous..., Swelling present... Neurologic: Oriented X3, Speech NL, No motor deficits, No sensory deficits, CN II - XII intact regional director strength 5/5 bilat Respiratory / Chest: Breath sounds NL, Breath sounds = bilat, No respiratory distress Cardiovascular: Heart rate NL, Regular rhythm, Heart sounds NL Interpretation & Diagnostics CT C-Spine Interpretation PROCEDURE: CT CERVICAL SPINE WITHOUT CONTRAST ([id number]) INDICATIONS: pain, s/p fall / TECHNIQUE: Noncontrast 3 mm thick sections acquired from the skull base to the T4 level. Sagittal and coronal reformats were then constructed. For radiation dose reduction, the following was used: automated exposure control, adjustment of mA and/or kV according to patient size. COMPARISON: None. FINDINGS: Image quality: Diagnostic. Bones: The craniocervical and atlantoaxial joints are well-maintained. The odontoid is intact. The vertebral body heights and prevertebral soft tissues are within normal limits throughout the cervical spine without evidence to suggest acute compression fracture. No other fractures are evident within the cervical spine. The bone mineralization is within normal limits. Postoperative changes are present related to an anterior cervical discectomy and fusion at the levels of C5-C7. Interbody bone spacers are present, secured in place by anteriorly placed orthopedic plate and screws. The orthopedic hardware appears to be grossly intact. However, evaluation of hardware on conventional radiographic imaging is difficult. There is reversal of the normal cervical lordosis. Mild facet degenerative changes are present. There is mild disc height loss at C4-5. Soft tissues: No prevertebral soft tissue swelling. The imaged lung apices are clear. Imaged portions of the mediastinum are unremarkable. Otherwise, the remainder of the imaged soft tissues of the neck are within normal limits. IMPRESSION: 1. No acute fracture of the cervical spine. 2. Postoperative and degenerative changes of the lower cervical spine. Dictated by: Sourav Ricardo M.D. on 11/08/2016 at 13:59 Approved by: Sourav Ricardo M.D. on 11/08/2016 at 14:06 Re-Eval/Medical Decision Med Decision/Clinical Course Pt's CT without findings of new trauma. Reviewed with Dr. Conley who concurs with plan for adjunctive therapy of Prednisone and Lidoderm patch to add to her home Oxycodone. Will also provide Zofran for nausea. Discussed s/s for which to seek further medical care. Pt. acknowledged understanding of treatment plan. Counseled Regarding: Diagnosis, Lab results, Need for follow-up, When/why to return to ED Discharge & Departure Primary Impression: Acute neck pain Additional Impression: Neck contusion Disposition: Home Patient Instructions: Contusion in Adults (ED) Additional Instructions: Rest, local heat, take home pain meds as currently prescribed. Use Prednisone, Zofran and Lidoderm patch as prescribed. Follow up if not improving, return to ER if anything worsens. Referrals: [facility] (PCP) 2-3 days if not improving as expected EDSupervising Provider for APC: Yehuda Conley MD, Christopher R [facility] Nov 08, 2016 14:20
--- NOTE | 2016-11-08 15:07 | DRSVH ---
PROCEDURE: CT CERVICAL SPINE WITHOUT CONTRAST ([id number]) INDICATIONS: pain, s/p fall 6/4 TECHNIQUE: Noncontrast 3 mm thick sections acquired from the skull base to the T4 level. Sagittal and coronal r eformats were then constructed. For radiation dose reduction, the following was used: automated exp osure control, adjustment of mA and/or kV according to patient size. COMPARISON: None. FINDINGS: Image quality: Diagnostic. Bones: The craniocervical and atlantoaxial joints are well-maintained. The odontoid is intact. The vertebral body heights and prevertebral soft tissues are within normal limits throughout the cervical spine without evidence to suggest acute compression fracture. No other fractures are evident within the cervical spine. The bone mineralization is within normal limits. Postoperative changes are present related to an anterior cervical discectomy and fusion at the levels of C5-C7. Interbody bone spacers are present, secured in place by anteriorly placed orthopedic plat e and screws. The orthopedic hardware appears to be grossly intact. However, evaluation of hardware on conventional radiographic imaging is difficult. There is reversal of the normal cervical lordosi s. Mild facet degenerative changes are present. There is mild disc height loss at C4-5. Soft tissues: No prevertebral soft tissue swelling. The imaged lung apices are clear. Imaged porti ons of the mediastinum are unremarkable. Otherwise, the remainder of the imaged soft tissues of the neck are within normal limits. IMPRESSION: 1. No acute fracture of the cervical spine. 2. Postoperative and degenerative changes of the lower cervical spine. Dictated by: Sourav Ricardo M.D. on 11/08/2016 at 13:59 Approved by: Sourav Ricardo M.D. on 11/08/2016 at 14:06
[2016-11-08] MEDS ORDERED: Ondansetron 8 mg ODT Tablet ONE (15:19)
[2016-11-08] MEDS ORDERED: LIDO700A6 TP (15:47)
[2016-11-08] MEDS ORDERED: PRE20 PO (15:47)
[2016-11-08] MEDS ORDERED: ONDA8TAB7 PO (15:47)
[2016-11-08 16:05] VITALS: BP 112/66; PULSE 81; O2SAT 100
== END 2016-11-08 16:09 | disposition home or self-care (01) ==
LOC: SED 14:11
DX: S10.93XA Contusion of unspecified part of neck, initial encounter (principal); W10.9XXA Fall (on) (from) unspecified stairs and steps, initial encounter; Y93.89 Activity, other specified; Y92.019 Unspecified place in single-family (private) house as the place of occurrence of the external cause; Y99.8 Other external cause status; J45.909 Unspecified asthma, uncomplicated; G43.909 Migraine, unspecified, not intractable, without status migrainosus; F41.9 Anxiety disorder, unspecified; Z87.891 Personal history of nicotine dependence; Z88.1 Allergy status to other antibiotic agents

== ENCOUNTER 2016-11-23 19:24 | Emergency (ER) | payer OTHER ==
[~2016-11-23] VITALS: Ht 175.3 cm; Wt 65.9 kg
[~2016-11-23 19:24] MED LIST changes: +LIDO700A6 TP; +ONDA8TAB7 PO; +PRE20 PO
[2016-11-23 19:26] VITALS: BP 135/91; PULSE 4; PULSE 84; RESP 18; O2SAT 100
[2016-11-23 20:34] LABS: BASOPHILS % (AUTO) 0.2 % (0-3); EOSINOPHILS % (AUTO) 5.2 % (0-5); MONOCYTES % (AUTO) 6.1 % (4-12); Mean Corpuscular Hemoglobin 23.5 pg (27.0-35.0); Mean Corpuscular Volume 76.2 fL (81-100); NEUTROPHILS % (AUTO) 52.9 % (40-74); Platelet Count 123 bil/L (150-400)
[2016-11-23 21:03] LABS: TROPONIN T < 0.010 ug/L (0.0-0.011)
== END 2016-11-23 21:48 | disposition left against medical advice (07) ==
LOC: SED 19:24
DX: Z53.21 Procedure and treatment not carried out due to patient leaving prior to being seen by health care provider (principal)

== ENCOUNTER 2017-02-02 14:01 | Emergency (ER) | payer OTHER ==
[~2017-02-02] VITALS: Ht 175.3 cm; Wt 71.0 kg
[2017-02-02 14:03] VITALS: BP 127/84; PULSE 74; RESP 16; O2SAT 100
[2017-02-02 14:40] VITALS: BP 138/71; PULSE 73; RESP 12; O2SAT 100
[2017-02-02 14:47] LABS: BASOPHILS % (AUTO) 0.5 % (0-3); EOSINOPHILS % (AUTO) 4.7 % (0-5); MONOCYTES % (AUTO) 7.7 % (4-12); Mean Corpuscular Hemoglobin 22.7 pg (27.0-35.0); Mean Corpuscular Volume 73.6 fL (81-100); NEUTROPHILS % (AUTO) 53.1 % (40-74); Platelet Count 143 bil/L (150-400)
--- NOTE | 2017-02-02 14:55 | DRSVH ---
PROCEDURE: X-RAY CHEST ONE VIEW, PORTABLE ([id number]) INDICATIONS: cp TECHNIQUE: One view of the chest was acquired. COMPARISON: [facility], CR, CHEST 2VW, 05/02/2014, 20:53. [facility], CR, X R CHEST 2VW, 06/05/2016, 8:10. FINDINGS: Surgical changes and devices: Partially visualized cervical spine fixation hardware.. Lungs and pleura: No pleural effusions or pneumothorax. Lungs are clear. Possible nipple shadow pr ojecting in the right right lung. Mediastinum: Mediastinal contours appear normal. Heart size is normal. Bones and chest wall: No suspicious bony lesions. Overlying soft tissues appear unremarkable. IMPRESSION: No acute disease. Probable nipple shadow projecting in the right lung although cannot exclude pulmonary nodule, however that would be statistically unlikely given patient age. As clinically warranted, repeat radiographs with nipple markers could be performed. Dictated by: Jose Angel Osei M.D. on 02/02/2017 at 14:51 Approved by: Jose Angel Osei M.D. on 02/02/2017 at 14:54
[2017-02-02] MEDS ORDERED: METH-313 PO (15:01)
[2017-02-02] MEDS ORDERED: DOXY25TA46 PO (15:04)
--- NOTE | 2017-02-02 15:08 | ED.REPORT ---
HPI-Chest Pain 40 and Over Date of Service Feb 02, 2017 ED Provider: Nile Perez MD Patient is a 41 year old female with a history of who presents to the ED complaining of an episode of epigastric/right upper quadrant/lower chest pain onset in the middle of the night. Associated symptoms include pain in the epigastric region, an episode of nausea last night, diaphoresis, pain that radiated into her shoulders and lightheadedness. She denies shortness of breath , calf swelling, throat pain, belching, cough or fever. Patient states that the pain is not exacerbated by movement/bending, not brought on by eating and she does not notice a difference when laying down or standing. The patient reports that the pain suddenly started while sleeping, resolved and then came back about an hour ago. She rates the pain as a 6/10 and describes it as a dull ache. She denies recent long travels, surgery or prolonged immobilization. Nursing Notes Stated Complaint: CHEST PAIN Chief Complaint: Chest Pain Nursing Notes Reviewed: Yes Allergies: Coded Allergies: Cephalexin Monohydrate (Verified Allergy, Intermediate, FACIAL SWELLING, ) vancomycin (Verified Allergy, Unknown, 11/23/16) Scheduled Albuterol HFA (Proair HFA) 8.5 Gm Hfa.aer.ad 2 PUFFS INHALATION Q4H Amitriptyline (Amitriptyline) 75 Mg Tablet 75 MG PO HS Citalopram (Citalopram) 20 Mg Tablet 40 MG PO DAILY Clonazepam (Klonopin) 1 Mg Tablet 1 MG PO TID Oxycodone (Roxicodone) 30 Mg Tablet 30 MG PO every 4 hours Sumatriptan Succinate (Imitrex) 6 Mg/0.5 Ml Cartridge 6 MG SQ ONCE may repeat in one hour, no more than 12 mg in 24hrs Scheduled PRN Doxylamine Succinate (Unisom) 25 Mg Tablet 25 MG PO HS PRN PRN Insomnia Methocarbamol (Robaxin-750) 750 Mg Tablet 750 MG PO QID PRN PRN For Spasm Ondansetron ODT (Zofran ODT) 8 Mg Tablet 8 MG PO TID PRN PRN For Nausea General Time Seen by MD: 14:58 Chief Complaint Chest pain Hx Obtained From: Patient Arrived By: Walk-in Sudden in Onset?: Yes Onset Occurred: 31 - 45 minutes ago Symptom Duration: Since onset Location: : Chest left Quality: Aching, Painful Severity: Current: Moderate Recent Healthcare: Recent doctor visit Similar Sx Previous: No Past Medical History Past Medical History MVP Anxiety Chronic pain Tachycardia Chronic migraines Reports: Asthma Past Surgical History c5-6,6-7 surgery May [address] no contrast on 02 of September at [facility] showing stable and intact ACDF C5-C7. Partial osseus bridging and fusion of C6-C7 level. Persistent lucency along the superior aspect of the intervertebral graft at C5-C6. No perihardware lucency. Jaw repair Reports: Tubal ligation Smoking History Former Smoker Social History Alcohol Use: Denies alcohol use Drug Use: Denies drug use Ambulatory Status Independent Review of Systems Constitutional: Denies: Chills, Fever Respiratory: Denies: Non-productive cough, Shortness of breath Cardiovascular: Reports: Chest pain GI: Reports: Abdominal pain, Nausea Musculoskeletal: Reports: Extremity pain, Denies: Extremity swelling Skin: Reports Diaphoresis, Denies Itching, Denies Rash Neurologic: Reports: Lightheaded, Denies: Numbness, Weakness Complete sys rev & neg: except as marked. Ears / Nose / Throat: Denies: Throat pain Physical Exam Initial Vital Signs Vital Signs (First) Date Time Temp Pulse Resp B/P Pulse Ox O2 Delivery O2 Flow Rate FiO2 02/02/17 14:03 37.2 74 16 127/84 100 Room Air Initial VS: Reviewed General/Constitutional: Awake, Alert Respiratory / Chest: Atraumatic, Breath sounds NL, Breath sounds = bilat, No respiratory distress, No chest tenderness Cardiovascular: Heart rate NL, Regular rhythm, No gallop, No murmurs, No rubs Heart Sounds / Murmur: Positive: Systolic murmur present.. (heard at the left lower border) Abdomen: Atraumatic, Soft mild epigastrium tenderness mild right upper quadrant tenderness with deep inspiration Lower Extremity / Pelvis / MS: Atraumatic, Full range of motion, No swelling, Non-tender Skin: Atraumatic, Color NL, No rash, Warm, Dry Neurologic: Oriented X3, Speech NL Head / Eyes: Atraumatic, Normocephalic, PERRL, EOMI Upper Extremity / MS: Atraumatic, Full range of motion Interpretation & Diagnostics Lab Results Interpretation Result Diagram: 02/02/17 1430 02/02/17 1430 Test 02/02/17 14:30 02/02/17 15:57 White Blood Count 4.0th/mm3 (3.8-10.1) Red Blood Count 4.28mil/mm3 (3.90-5.20) Hemoglobin 9.7g/dL (12.0-15.6) Hematocrit 31.5% (35.0-46.0) Mean Corpuscular Volume 73.6fL (81-100) Mean Corpuscular Hemoglobin 22.7pg (27.0-35.0) Mean Corpuscular Hemoglobin Concent 30.8% (32.0-37.0) Red Cell Distribution Width 15.7% (12.3-15.4) Platelet Count 143bil/L (150-400) Neutrophils (%) (Auto) 53.1% (40-74) Lymphocytes (%) (Auto) 33.8% (14-46) Monocytes (%) (Auto) 7.7% (4-12) Eosinophils (%) (Auto) 4.7% (0-5) Basophils (%) (Auto) 0.5% (0-3) Sodium Level 138mEq/L (134-144) Potassium Level 4.3mEq/L (3.5-5.2) Chloride Level 102mEq/L (97-108) Carbon Dioxide Level 24mmol/L (18-29) Blood Urea Nitrogen 11mg/dL (6-24) Creatinine 0.69mg/dL (0.57-1.00) Estimat Glomerular Filtration Rate 135mL/min (>59) Glucose Level 91mg/dL (60-99) Calcium Level 8.9mg/dL (8.5-10.1) Magnesium Level 1.9mg/dL (1.6-2.6) Total Bilirubin 0.2mg/dL (0.0-1.2) Aspartate Amino Transf (AST/SGOT) 32U/L (0-50) Alanine Aminotransferase (ALT/SGPT) 19U/L (0-32) Alkaline Phosphatase 75U/L (25-150) Troponin T < 0.010ug/L (0.0-0.011) Total Protein 6.4g/dL (6.4-8.4) Albumin 3.9g/dL (3.4-5.0) Hold Urine Received (Received) ECG Interpretation ECG Interpretation: normal axis normal intervals no ST segment changes no T wave abnormalities no prior EKG for comparison Interpreted by: ED physician Normal ECG Interpretation: Normal rate (71), Normal sinus rhythm X-Ray Chest Interpretation Chest Xray Interpretation: IMPRESSION: No acute disease. Probable nipple shadow projecting in the right lung although cannot exclude pulmonary nodule, however that would be statistically unlikely given patient age. As clinically warranted, repeat radiographs with nipple markers could be performed. Dictated by: Jose Angel Osei M.D. on 02/02/2017 at 14:51 Approved by: Jose Angel Osei M.D. on 02/02/2017 at 14:54 View: Portable, 1 view Interpretation / Wet Read by: Interpret - Radiologist Re-Eval/Medical Decision Med Decision/Clinical Course Patient is a 41 year old female with a history of who presents to the ED complaining of an episode of epigastric/right upper quadrant/lower chest pain onset in the middle of the night. Associated symptoms include pain in the epigastric region, an episode of nausea last night, diaphoresis, pain that radiated into her shoulders and lightheadedness. She denies shortness of breath , calf swelling, throat pain, belching, cough or fever. Patient states that the pain is not exacerbated by movement/bending, not brought on by eating and she does not notice a difference when laying down or standing. The patient reports that the pain suddenly started while sleeping, resolved and then came back about an hour ago. She rates the pain as a 6/10 and describes it as a dull ache. She denies recent long travels, surgery or prolonged immobilization. Here in the emergency department the patient is afebrile, hemodynamically stable and in no apparent distress. The patient has reproducible tenderness about the epigastrium and right upper quadrant. Order list: Zofran and GI cocktail. After receiving the above medications the patient reported symptomatic improvement. Chest X-ray: IMPRESSION: No acute disease. Probable nipple shadow projecting in the right lung although cannot exclude pulmonary nodule, however that would be statistically unlikely given patient age. As clinically warranted, repeat radiographs with nipple markers could be performed. EKG: sinus rhythm, 71bpm normal axis normal intervals no ST segment changes no T wave abnormalities no prior EKG for comparison Labs: CBC unremarkable, no leukocytosis Hematocrit 31.5 negative Trop CMP unremarkable A stone initial screening EKG and troponin my suspicion that her pain is cardiac is relatively low. Her pretest probability for cardiac etiologies of her chest pain is further lessened by being female in relatively young. Presence of right upper quadrant tenderness and epigastric pain raises concern for GI etiologies such as peptic ulcer disease, gastritis and biliary disease. I ordered a right upper quadrant ultrasound to further assess the presence of gallstones however patient decided that she did not want to be in the emergency department any longer and refused further workup or studies. She is advised to follow-up with her primary care physician on an outpatient basis. Repeat abdominal examination revealed no acutely concerning findings. She will follow- up for right upper quadrant ultrasound and stress test as an outpatient. Prior to discharge follow-up and return precautions were reviewed in detail with the patient who verbalized understanding and agreement with the plan. The patient was discharged in stable condition. Time of Eval: 16:41 Re-Evaluation/Progress Note: Patient is refusing the ultrasound and wants to be discharged Time of Eval: 16:42 Re-Evaluation/Progress Note: Discussed results and risks of refusing US. Patient understands and agrees to plan. Discussed plan for outpatient follow up and discharge. Patient understands and agrees to plan. All questions were addressed. Counseled Regarding: Diagnosis, Lab results, Need for follow-up, When/why to return to ED Discharge & Departure Primary Impression: Epigastric abdominal pain Additional Impressions: Right upper quadrant abdominal tenderness Presence of rebound: present Qualified Code: R10.821 - Right upper quadrant rebound abdominal tenderness Chest pain Chest pain type: unspecified Qualified Code: R07.9 - Chest pain, unspecified Disposition: Home Discharge Condition All VS Reviewed: Yes Condition: Stable Additional Instructions: Thank you for seeking care at the emergency room. You were seen today for chest pain. After your evaluation, your pain does not seem to be cardiac. Your pain could be related to your gallbladder since you are experiencing pain in your right upper quadrant. You refused an ultrasound in the ED today. You can take Tylenol as directed for pain. You should follow-up with your primary doctor later this week to get an ultrasound and further work up, possibly including an outpatient stress test. You should return to the Emergency Department immediately if you develop recurrent chest pain, worsening abdominal pain, vomiting, fever or any other concerning signs or symptoms. Thank you for letting us partake in your care today. Referrals: [facility] (PCP) Srini Attestation Portions of this note were transcribed by Rosalva Cardoza. I, Dr. Perez personally performed the history, physical exam and medical decision-making; I reviewed and confirmed the accuracy of the information in the transcribed note. Signed by: Srini Andre, 02/02/17 copies to: [facility] Beck O MD Feb 02, 2017 15:08 Leti Cardoza Feb 02, 2017 15:47
[2017-02-02 15:09] LABS: TROPONIN T < 0.010 ug/L (0.0-0.011)
[2017-02-02 15:16] LABS: Magnesium 1.9 mg/dL (1.6-2.6)
[2017-02-02] MEDS ORDERED: LidocaineVisc 2%:Antacid 1:1 10 mL Syringe PO ONE (16:10)
[2017-02-02 16:38] VITALS: BP 120/67; PULSE 71; RESP 12; O2SAT 97
[2017-02-02 17:08] VITALS: BP 120/67; PULSE 71; RESP 12; O2SAT 97
== END 2017-02-02 17:10 | disposition home or self-care (01) ==
LOC: SED 14:01
DX: R10.13 Epigastric pain (principal); R10.821 Right upper quadrant rebound abdominal tenderness; R07.9 Chest pain, unspecified; R11.0 Nausea; G43.909 Migraine, unspecified, not intractable, without status migrainosus; F41.9 Anxiety disorder, unspecified; J45.909 Unspecified asthma, uncomplicated; Z88.1 Allergy status to other antibiotic agents; Z87.891 Personal history of nicotine dependence
CPT/HCPCS: 36415; 71010; 80053; 82948; 83735; 84484; 85025; 93005; 96374; 99285; J2270

== ENCOUNTER 2017-02-12 18:14 | Emergency (ER) | payer OTHER ==
[~2017-02-12 18:14] MED LIST changes: -ATEN25TA PO; -BACL20TA PO; +DOXY25TA46 PO; -LEVO750T9 PO; -LIDO700A6 TP; +METH-313 PO; -METH4TAB11 PO; -PRE20 PO
== END 2017-02-12 18:29 | disposition left against medical advice (07) ==
LOC: SED 18:14
DX: M54.2 Cervicalgia (principal); Z53.21 Procedure and treatment not carried out due to patient leaving prior to being seen by health care provider